=== PATIENT | female | born 1985 | race Caucasian/White ===

== ENCOUNTER → 2021-01-18 15:58 | Outpatient (CLI) | payer OTHER, SELFPAY ==
--- NOTE | ~2021-01-18 | US_ITS ---
US OB transvaginal DATE: 01/18/2021 16:22 INDICATION: First trimester subchorionic hematoma reported on the prior outside ultrasound examinatio n on 01/04/2021, at which time gestational age was reportedly 6 weeks 3 days TECHNIQUE: Real-time imaging via transvaginal approach COMPARISON: None FINDINGS: There is patchy heterogeneous echogenicity surrounding the mildly irregular gestational sac . A pole is detected but there is no cardiac motion. Approximately 0.4 x 2 x 0.8 mm subch orionic hemorrhage is noted. 1.4 x 2 x 2.3 cm right ovarian cyst. [place]-rump length measurement averages 0.53 cm consistent with estimated gestational age of 6 weeks 2 days; there is no evidence of interval le growth essentially since the reported prior 6 week 3 day estimated gestational age on 01/04/2021 ultrasound examination. IMPRESSION: demise Reviewed, dictated and finalized at [facility]. Reviewed, dictated and finalized at [facility]. IMPRESSION: demise
== END ==
PROVIDERS: Visit Provider Obstetrics & Gynecology Gynecology
DX: O36.8910 Maternal care for other specified fetal problems, first trimester, not applicable or unspecified (principal); Z3A.00 Weeks of gestation of pregnancy not specified
CPT/HCPCS: 76817